=== PATIENT | female | born 1995 | race Caucasian/White ===

== ENCOUNTER 2025-05-23 09:08 | Emergency (ER) | payer BC, SELFPAY ==
[2025-05-23 09:10] VITALS: BP 131/87
--- NOTE | 2025-05-23 09:50 | ED.GENMED ---
History of Present Illness
General
Chief Complaint: Fall
Source: patient
Exam Limitations: none
Time Seen by Provider: 05/23/25 09:20
Nursing documentation reviewed up to this point in time: agreed with
History of Present Illness
History of Present Illness:
-29 year-old female presents to the ER after fall. Patient reports she was holding her child and tripped and landed on both elbows. She is right-hand dominant. She complains of pain along with abrasion to left posterior elbow. She complains of
abrasions to right elbow but does not complain of discomfort. She is right-hand dominant. She denies hitting her head denies any neck pain back pain no other injuries. Her last tetanus is 5 months ago.
Past History
Past History
ED Past Medical History: Other (Kidney stones) and Other (Migraines)
ED Past Surgical History: Orthopedic (Right elbow surgery, ACL left leg), Tonsilectomy and Other (Nasal surgery, ear tubes)
Social History
Tobacco: Non-smoker
Alcohol: None
Drug: None
Employment: Employed
Phy Exam
General Physical Exam
General Presentation: well appearing
General age: appears stated age
General Skin: warm and dry
General Habitus: normal
General Mental: alert
General Hydration: appears well hydrated
Neurological Exam
Neurological Exam: alert and oriented x3
Musculoskeletal Exam
Musculoskeletal Exam: other (Left upper extremity with mild tenderness and abrasion to posterior elbow however good range of motion no proximal radial or proximal ulna tenderness; right arm with abrasions to right posterior volar forearm. no head
injury no C-spine tenderness)
Skin Exam
Skin Exam: normal color and warm/dry
Psychiatric Exam
Psychiatric Exam: normal mood/affect
Course
Orders/Labs/Results
Orders:
Orders
05/23/25 09:18
Elbow, 3 view, Left [CR Elbow - Left Min 3 Views ] Urgent
Comment:
Reason For Exam: fall
Vital Signs
Initial and Last Documented VS:
Initial Vital Signs
Temp Pulse Resp BP Pulse Ox
98.3 F 94 18 131/87 98
05/23/25 09:10 05/23/25 09:10 05/23/25 09:10 05/23/25 09:10 05/23/25 09:10
Last Documented Vital Signs
Temp Pulse Resp BP Pulse Ox
98.3 F 94 18 131/87 98
05/23/25 09:10 05/23/25 09:10 05/23/25 09:10 05/23/25 09:10 05/23/25 09:51
MDM/Problems Addressed
Differential Diagnosis Includes:
Not limited to contusion, fracture, abrasion
MDM/Problems Addressed:
Simple abrasions to bilateral elbow forearms. No fracture. No other injuries. Tetanus is up-to-date. Wounds cleansed and wound care reviewed.
*Radiology
Radiology exam reviewed: radiology read reviewed
*Pulse Oximetry
SaO2: 98
Oxygen Mode of Delivery: Room air
Patient hypoxic: no
*Critical Care Note
Total Time (30-74mins, 75-104mins- exclusive of procedures): Not Applicable
ED Attending Note
-
Portions of this chart may have been created with voice recognition software.� Occasional wrong word or��sound alike� substitutions may have occurred due to the inherent limitations of voice recognition software.
Discharge Plan
Departure
Patient Disposition: Home (Routine Discharge)
Date of Disposition: 05/23/25
Time of Disposition: 09:53
Patient with high blood pressure during this ER visit?: No
Condition: Fair
Covid-19: Not Applicable
Discharge Problem:
Abrasion, Contusion
Instructions: Contusion (DC), Skin Abrasions (DC), BLOOD PRESSURE
Prescriptions:
No Action
ondansetron 4 MG tablet,disintegrating
4 mg PO TIDPRN PRN (Reason: nausea/vomiting) Qty: 10 0RF
norgestimate-ethinyl estradiol [Tri-Sprintec (28)] 1 TAB tablet
1 tab PO DAILY
topiramate [Topamax] 50 MG tablet
50 mg PO BID
hydrocodone-acetaminophen 1 TABLET tablet
1 - 2 tab PO Q4HPRN PRN (Reason: pain) Qty: 15 0RF
tamsulosin 0.4 MG capsule
0.4 mg PO DAILY Qty: 15 0RF
Activity Restrictions/Additional Instructions:
Wash abrasions with soap and water twice a day apply small layer of antibiotic ointment to the area. You may ice the affected area for the next 24 hours 20 minutes at a time several times a day. Follow-up with family doctor in the next 1 -1
days.
return if any worsening of symptoms.
Interventions
Interventions:
*Risk Screen - Suicide Last Done: 05/23/25 09:10
*General Assessment Last Done: 05/23/25 09:10
*Neglect/Abuse Screening Last Done: 05/23/25 09:10
*ED COVID-19 Vaccine History Last Done: 05/23/25 09:10
Discharge Date and Time
Print Language: PANAMANIAN
== END 2025-05-23 10:25 | disposition home or self-care (01) ==
LOC: EMR 09:08
PROVIDERS: EMERGENCY PHYSICIAN Emergency Medicine; FAMILY PHYSICIAN Internal Medicine
DX: S50.311A Abrasion of right elbow, initial encounter (principal); W01.0XXA Fall on same level from slipping, tripping and stumbling without subsequent striking against object, initial encounter; Z87.442 Personal history of urinary calculi
CPT/HCPCS: 99283; 73080